=== PATIENT | female | born 1980 | race Native Hawaiian/Other Pacific Islander ===

== ENCOUNTER 2016-05-24 13:53 | Outpatient (CLI) | payer BC | END 2016-05-24 19:15 | disposition home or self-care (01) | LOC: MAMMO 13:53 | DX: N63 Unspecified lump in breast (principal) | CPT/HCPCS: G0204-TC ==

== ENCOUNTER 2018-06-15 11:11 | Outpatient (CLI) | payer BC ==
[2018-06-15 11:41] LABS: PLATELET COUNT 274 K/uL (152-353)
== END 2018-06-15 23:23 | disposition home or self-care (01) ==
LOC: LABW 11:11
PROVIDERS: Nurse Practitioner Family
DX: R23.3 Spontaneous ecchymoses (principal)
CPT/HCPCS: 36415; 80076; 85027